=== PATIENT | female | born 1965 | race Caucasian/White ===

== ENCOUNTER → 2018-09-08 09:58 | Outpatient (CLI) | payer OTHER, SELFPAY ==
[2018-09-08 11:06] LABS: BUN Creatinine Ratio 16.4 (6-22); Blood Urea Nitrogen 18 mg/dL (7-17)
== END ==
PROVIDERS: PCP Physician Assistant Medical; Visit Provider Otolaryngology
DX: M79.2 Neuralgia and neuritis, unspecified (principal)
CPT/HCPCS: 36415; 82565; 84520

== ENCOUNTER → 2018-09-11 14:32 | Outpatient (CLI) | payer OTHER, SELFPAY ==
--- NOTE | 2018-09-11 | DI.MRI.S_ITS ---
PROCEDURE: MR ORBITS FACE NECK WO/W CON INDICATIONS: Neuralgia and neuritis, unspecified TECHNIQUE: Sagittal/axial/coronal T1 spin echo and STIR. After the administration of contrast, axial/coronal/sagittal T1 fast spin echo with fat saturation through the neck. COMPARISON: None. FINDINGS: Image quality: Excellent. Lymph nodes: No enlarged nodes are seen throughout the neck. Vessels: Visualized vasculature appears normal, with eamon flow voids and enhancement. Neck spaces: The oropharynx, nasopharynx and pharynx are unremarkable, without mucosal lesions seen. Vocal cords, false vocal cords, pyriform sinuses, epiglottis, vallecula, and tongue base all appear normal. Extramucosal spaces of the neck also appear unremarkable. Glands: The parotid and submandibular glands appear normal. Thyroid gland is not well-seen. Miscellaneous: Visualized brain and orbits appear normal. Lung apices appear clear. Superficial soft tissues appear normal. Visualized sinuses and mastoids appear clear. Bones: Marrow has normal overall signal. Mild age-appropriate cervical spine degenerative changes are seen. IMPRESSION: No imaging explanation is found for this patient's presenting symptoms. No masses or abnormal enhancement can be seen. Dictated by: Robson Jain M.D. on 09/11/2018 at 15:36 Approved by: Robson Jain M.D. on 09/11/2018 at 15:38
== END ==
PROVIDERS: PCP Physician Assistant Medical; Visit Provider Otolaryngology
DX: M79.2 Neuralgia and neuritis, unspecified (principal)
CPT/HCPCS: 70543; A9579

== ENCOUNTER → 2019-09-19 12:35 | Outpatient (CLI) | payer OTHER, SELFPAY ==
--- NOTE | 2019-09-19 | DI.MRI.S_ITS ---
PROCEDURE: MR HEAD/BRAIN WO/W CON INDICATIONS: Unspecified visual loss TECHNIQUE: Noncontrast axial T1 spin echo, axial T2 fast spin echo, sagittal and axial FLAIR, coronal T2 fast spin echo, axial gradient echo, axial diffusion and ADC through the brain. After the administration of contrast, axial and coronal 3D VIBE or T1 spin echo with fat saturation through the brain. COMPARISON: None. FINDINGS: Image quality: Excellent. CSF Spaces: Basal cisterns are patent. No extra-axial fluid collections. Ventricles are normal in size and shape. Brain: No midline shift. No intracranial bleeds or masses. No abnormal intracranial enhancement. The brainstem appears normal. Diffusion-weighted images demonstrate no acute ischemic insults. No chronic ischemic insults. Normal intravascular flow voids are present. Skull and face: Calvarial marrow is normal in signal. Orbits appear normal. Sinuses: Sinuses and mastoids appear clear. IMPRESSION: Normal for age, source of current symptoms is not seen. Dictated by: Brayan De La Paz M.D. on 09/19/2019 at 13:33 Approved by: Brayan De La Paz M.D. on 09/19/2019 at 13:34
== END ==
PROVIDERS: Referring Provider Psychiatry & Neurology Neurology; Visit Provider Psychiatry & Neurology Neurology
DX: H54.7 Unspecified visual loss (principal)
CPT/HCPCS: 70553

== ENCOUNTER → 2022-12-08 10:25 | Outpatient (CLI) | payer OTHER, SELFPAY ==
[2022-12-08 10:49] LABS: Add Manual Diff / Slide Review NO; Basophils Absolute Auto 0 /uL (0-100); Basophils Percent Auto 0.7 % (0-2); Eosinophils Absolute Auto 100 /uL (0-450); Eosinophils Percent Auto 1.3 % (2-4); Hematocrit 40.5 % (36-46); Hemoglobin 13.9 g/dL (12.0-16.0); Lymphocytes Absolute Auto 1800 /uL (1100-4500); Lymphocytes Percent Auto 26.9 % (25-40); Mean Corpuscular HGB Conc 34.3 % (30-36); Mean Corpuscular Hemoglobin 29.9 PG (26-34); Mean Corpuscular Volume 87.2 fL (80-100); Monocytes Absolute Auto 500 /uL (0-900); Monocytes Percent Auto 7.1 % (3-14); Neutrophils Absolute Auto 4400 /uL (1500-7000); Platelet Count 187 X10^3/uL (150-400); Red Blood Cell Count 4.64 X10^6/uL (4.0-5.2); Red Cell Distribution Width 13.9 % (11.6-14.8); White Blood Cell Count 6.9 X10^3/uL (4.5-11.0)
[2022-12-08 11:24] LABS: Alanine Aminotransferase 22 IU/L (<35); Albumin 4.2 g/dL (3.5-5.0); Albumin Globulin Ratio 1.6 (1.0-2.8); Alkaline Phosphatase 58 U/L (38-126); Aspartate Aminotransferase 20 IU/L (14-36); BUN Creatinine Ratio 14.4 (6-22); Bilirubin Total 0.5 mg/dL (0.2-1.3); Blood Urea Nitrogen 17 mg/dL (7-17); Calcium 8.9 mg/dL (8.4-10.2); Carbon Dioxide 28 mmol/L (22-32); Chloride 104 mmol/L (98-107); Cholesterol 197 mg/dL (140-199); Estimated Glomerular Filt Rate 54 mL/min (>60); Globulin 2.6 g/dL (1.7-4.1); Glucose 81 mg/dL (70-100); HDL Cholesterol 52 mg/dL (40-60); HEMOLYSIS < 15 (0-50); LDL Cholesterol Calculated 108 mg/dL (<100); Sodium 136 mmol/L (137-145); Total Protein 6.8 g/dL (6.3-8.2); Triglycerides 184 mg/dL (35-150)
[2022-12-08 11:56] LABS: TSH w/ Reflex to FT4 1.73 uIU/mL (0.47-4.68)
[2022-12-08 12:55] LABS: Creatinine Urine Random 83.9 mg/dL
[2022-12-08 13:00] LABS: Microalbumin Urine Random < 0.6 mg/dL (0-1.6)
== END ==
PROVIDERS: PCP Family Medicine; Referring Provider Family Medicine; Visit Provider Family Medicine
DX: I10 Essential (primary) hypertension (principal); R53.83 Other fatigue; N18.31 Chronic kidney disease, stage 3a
CPT/HCPCS: 36415; 80053; 80061; 82043; 82570; 84443; 85025

== ENCOUNTER → 2023-08-30 08:32 | Outpatient (CLI) | payer OTHER, SELFPAY ==
[2023-08-30 09:04] LABS: Add Manual Diff / Slide Review NO; Basophils Absolute Auto 100 /uL (0-100); Basophils Percent Auto 1.1 % (0-2); Eosinophils Absolute Auto 100 /uL (0-450); Eosinophils Percent Auto 1.3 % (2-4); Hematocrit 43.5 % (36-46); Hemoglobin 14.8 g/dL (12.0-16.0); Lymphocytes Absolute Auto 2000 /uL (1100-4500); Lymphocytes Percent Auto 21.7 % (25-40); Mean Corpuscular Hemoglobin 29.7 PG (26-34); Mean Corpuscular Volume 87.4 fL (80-100); Monocytes Absolute Auto 500 /uL (0-900); Neutrophils Absolute Auto 6600 /uL (1500-7000); Neutrophils Percent Auto 70.9 % (50-75); Platelet Count 253 X10^3/uL (150-400); Red Blood Cell Count 4.98 X10^6/uL (4.0-5.2); Red Cell Distribution Width 13.4 % (11.6-14.8); White Blood Cell Count 9.2 X10^3/uL (4.5-11.0)
[2023-08-30 09:05] LABS: Hemoglobin A1C% w Est Avg Glu 5.2 % (4.0-6.0)
[2023-08-30 09:11] LABS: BUN Creatinine Ratio 13.6 (6-22); Blood Urea Nitrogen 16 mg/dL (7-17); Calcium 9.5 mg/dL (8.4-10.2); Carbon Dioxide 26 mmol/L (22-32); Chloride 103 mmol/L (98-107); Cholesterol 203 mg/dL (140-199); Estimated Glomerular Filt Rate 54 mL/min (>60); Glucose 97 mg/dL (70-100); HDL Cholesterol 45 mg/dL (40-60); HEMOLYSIS < 15 (0-50); LDL Cholesterol Calculated 130 mg/dL (<100); Potassium 4.5 mmol/L (3.4-5.1); Sodium 136 mmol/L (137-145); Triglycerides 142 mg/dL (35-150)
[2023-08-30 09:14] LABS: High Sensitivity CRP - Cardiac 1.6 mg/L (1.0-3.0)
[2023-08-30 09:24] LABS: Creatinine Urine Random 113.7 mg/dL
[2023-08-30 09:34] LABS: Microalbumin Urine Random < 0.6 mg/dL (0-1.6)
[2023-08-30 09:53] LABS: TSH w/ Reflex to FT4 1.37 uIU/mL (0.47-4.68)
== END ==
PROVIDERS: PCP Family Medicine; Referring Provider Family Medicine; Visit Provider Family Medicine
DX: R63.5 Abnormal weight gain (principal); I10 Essential (primary) hypertension; N18.31 Chronic kidney disease, stage 3a
CPT/HCPCS: 36415; 80048; 80061; 82043; 82570; 83036; 84443; 85025; 86140

== ENCOUNTER → 2023-12-07 09:56 | Outpatient (CLI) | payer OTHER, SELFPAY ==
--- NOTE | 2023-12-07 09:57 | DI.RAD.S_ITS ---
PROCEDURE: XR DEXA AXIAL SKELETON INDICATIONS: bone density screening COMPARISON: None. FINDINGS: Lumbar Spine: Bone mineral density 0.941 g/cm2, T score -1.0. Left Hip: Bone mineral density 0.698 g/cm2, T score -2.0. Left Femoral Neck: Bone mineral density 0.673 g/cm2, T score -1.6. Right Hip: Bone mineral density 0.732 g/cm2, T score -1.7. Right Femoral Neck: Bone mineral density 0.664 g/cm2, T score -1.7. Fracture Risk Calculation (when applicable): 10-year fracture risk of a major osteoporotic fracture 8.1% and of a hip fracture 0.7%. (T score greater or equal to -1.0 to: NORMAL) (T score from -1.1 to -2.4: OSTEOPENIA) (T score less than or equal to -2.5: OSTEOPOROSIS) IMPRESSION: Osteopenia. Follow-up guidelines as follows: Osteoporosis: Consider a repeat DEXA and Vertebral Fracture Assessment (VFA) exam in 2 years or sooner if medically necessary, to reassess this patient's status. Osteopenia: Consider a repeat DEXA in 2-3 years to reassess this patient's status, or if there is a new clinical indication. Normal: Consider a repeat DEXA in 5 years or sooner, or if there is a new clinical indication. Dictated by: Tavo Dias M.D. on 12/07/2023 at 12:02 Approved by: Tavo Dias M.D. on 12/07/2023 at 12:03
== END ==
LOC: RAD 09:56
PROVIDERS: PCP Family Medicine; Referring Provider Family Medicine; Visit Provider Family Medicine
DX: M81.0 Age-related osteoporosis without current pathological fracture (principal)
CPT/HCPCS: 77080

== ENCOUNTER → 2024-01-16 10:32 | Outpatient (CLI) | payer OTHER, SELFPAY ==
--- NOTE | 2024-01-16 | DI.MG.S_ITS ---
BILATERAL DIGITAL SCREENING MAMMOGRAM 3D/2D WITH CAD: 01/16/2024 CLINICAL: Routine screening. Comparison is made to exams dated: 01/06/2023 mammogram, 04/18/2019 mammogram, and 02/14/2018 mammogram - [facility]. Both breasts are heterogeneously dense, which may obscure small masses (category c / 51-75% glandular tissue). Current study was also evaluated with a Computer Aided Detection (CAD) system. No significant masses, calcifications, or other findings are seen in either breast. There has been no significant interval change. IMPRESSION: NEGATIVE There is no mammographic evidence of malignancy. A 1 year screening mammogram is recommended. Based on the Tyrer Cuzick model (a risk assessment model) the patient's lifetime risk is 11.2% and her 10 year risk is 4.1%. According to the ACR, ACS, and NCCN guidelines, an annual breast MRI exam along with mammogram is recommended if the patient's lifetime risk is 20% or greater. This exam was interpreted at Station ID: [id number]. NOTE: For mammograms, a report in lay terms will be sent to the patient. Approximately 15% of breast malignancies will not be visualized mammographically. In the management of a palpable breast mass, a negative mammogram must not discourage biopsy of a clinically suspicious lesion. Electronically Signed By: Julia vasquez/ulises:01/16/2024 17:22:31 letter sent: Normal Exam ACR BI-RADS Category 1: Negative [id number]
== END ==
PROVIDERS: PCP Family Medicine; Referring Provider Family Medicine; Visit Provider Family Medicine
DX: Z12.31 Encounter for screening mammogram for malignant neoplasm of breast (principal); R92.333 Mammographic heterogeneous density, bilateral breasts
CPT/HCPCS: 77063; 77067

== ENCOUNTER → 2025-02-28 11:41 | Outpatient (CLI) | payer OTHER, SELFPAY ==
--- NOTE | 2025-02-28 11:42 | DI.MG.S_ITS ---
MM screening mammo BI: 02/28/2025. BI-RADS: 1 CLINICAL: 60-year old female for bilateral screening mammogram. Tyrer-Cuzick lifetime risk of 8.0%. No personal or first-degree family history of breast cancer. PRIOR EXAMS 01/16/2024, 01/06/2023, 04/18/2019, 03/06/2018. MAMMOGRAPHY TECHNIQUE: 2D and 3D (tomosynthesis) digital mammographic views obtained, with additional images as needed for full coverage. Current study was also evaluated with a Computer Aided Detection (CAD) system. DENSITY C. The breasts are heterogeneously dense, which may obscure small masses. MAMMOGRAPHY FINDINGS Bilateral: No suspicious mass, asymmetry, microcalcification, or other abnormality seen. IMPRESSION: * No evidence of malignancy. RECOMMENDATIONS Bilateral * Annual screening mammography. OVERALL ASSESSMENT CATEGORY BI-RADS-1: Negative. The [employer] recommends annual screening mammography beginning at age 40 for women with average risk of breast cancer. ELECTRONICALLY SIGNED: Georgina Cervantes M.D. on 02/28/2025 at 09:54:10 PM PT Interpreting Station ID: [id number]
== END ==
PROVIDERS: PCP Family Medicine; Referring Provider Family Medicine; Visit Provider Family Medicine
DX: Z12.31 Encounter for screening mammogram for malignant neoplasm of breast (principal); R92.333 Mammographic heterogeneous density, bilateral breasts
CPT/HCPCS: 77063; 77067

== ENCOUNTER → 2025-05-07 09:17 | Outpatient (CLI) | payer OTHER, SELFPAY ==
[2025-05-07 10:33] LABS: Alanine Aminotransferase 12 IU/L (<35); Albumin 4.2 g/dL (3.5-5.0); Albumin Globulin Ratio 1.5 (1.0-2.8); Alkaline Phosphatase 63 U/L (38-126); Blood Urea Nitrogen 21 mg/dL (7-17); Calcium 9.2 mg/dL (8.4-10.2); Carbon Dioxide 25 mmol/L (22-32); Chloride 108 mmol/L (98-107); Cholesterol 189 mg/dL (140-199); Estimated Glomerular Filt Rate > 60 mL/min (>60); Globulin 2.8 g/dL (1.7-4.1); Glucose 90 mg/dL (70-99); HDL Cholesterol 58 mg/dL (40-60); HEMOLYSIS < 15 (0-50); Potassium 4.8 mmol/L (3.4-5.1); Sodium 140 mmol/L (137-145); Total Protein 7.0 g/dL (6.3-8.2); Triglycerides 110 mg/dL (35-150)
[2025-05-08 04:08] LABS: CRP, High Sensitivity 1.58 mg/L (0.00-3.00)
== END ==
PROVIDERS: PCP Family Medicine; Referring Provider Family Medicine; Visit Provider Family Medicine
DX: Z00.00 Encounter for general adult medical examination without abnormal findings (principal); I10 Essential (primary) hypertension; N18.31 Chronic kidney disease, stage 3a; M85.80 Other specified disorders of bone density and structure, unspecified site; Z78.0 Asymptomatic menopausal state; N39.0 Urinary tract infection, site not specified
CPT/HCPCS: 36415; 80053; 80061; 86140